=== PATIENT | male | born 1945 | race Caucasian/White ===

== ENCOUNTER → 2016-10-21 | Outpatient (CLI) | payer OTHER ==
[~2016-10-21] MED LIST: AMLO-110 PO; ASPEC81 PO; B-COCAP2 PO; GLYB5TAB8 PO; HMLI SC; HYDR12.56 PO; MCR25 PO; MULT-506 PO; REPA2TAB13 PO; VITA400C15 PO
[2016-10-21 11:02] LABS: MEAN CELL VOLUME 87.3 fL (80-100); MEAN CORPUSCULAR HGB CONC 35.5 g/dl (32-36); PLATELET COUNT 202 K/uL (130-400); RED BLOOD COUNT 4.81 M/uL (4.7-6.1); WHITE BLOOD COUNT 7.44 K/uL (4.8-10.8)
[2016-10-21 11:11] LABS: URINE APPEARANCE CLEAR (CLEAR); URINE BILIRUBIN NEG (NEG); URINE COLOR YELLOW; URINE EPITHELIAL CELL AUTO 0-5 /lpf (0-5); URINE NITRITE NEG (NEG); URINE PH 6.5 (4.5-7.5); URINE SPECIFIC GRAVITY 1.012 (1.000-1.030); UROBILINOGEN NEG (NEG)
[2016-10-21 11:19] LABS: MANUAL MICROSCOPIC REQUIRED? NO; REVIEW REQ? NO
[2016-10-21 11:33] LABS: ESTIMATED AVERAGE GLUCOSE 146 mg/dl; HA1C FLAG Normal (Normal)
[2016-10-21 12:59] LABS: URINE TOTAL PROTEIN 59.2 mg/dl (0-11.9)
[2016-10-21 13:03] LABS: BLOOD UREA NITROGEN 45 mg/dl (7-18); BUN/CREATININE RATIO 22.3 (10-20); CALCIUM 9.6 mg/dl (8.5-10.1); CARBON DIOXIDE 24 mmol/L (21-32); CHLORIDE 106 mmol/L (98-107); CHOLESTEROL 204 mg/dl (0-200); GLUCOSE 153 mg/dl (70-99); SODIUM 140 mmol/L (136-145)
[2016-10-21 13:14] LABS: HDL CHOLESTEROL 41 mg/dl; LDL CHOLESTEROL CALCULATED 114 mg/dl; PHOSPHORUS 3.1 mg/dl (2.5-4.9); TRIGLYCERIDES 246 mg/dl (0-150); VERY LOW DENSITY LIPOPROT CALC 49 mg/dl
== END | disposition home or self-care (01) ==
LOC: C.LAB1850 10:09
PROVIDERS: ATTEND Internal Medicine Nephrology
DX: E11.8 Type 2 diabetes mellitus with unspecified complications (principal); E78.5 Hyperlipidemia, unspecified; I12.9 Hypertensive chronic kidney disease with stage 1 through stage 4 chronic kidney disease, or unspecified chronic kidney disease; N18.3 Chronic kidney disease, stage 3 (moderate); R80.9 Proteinuria, unspecified; E55.9 Vitamin D deficiency, unspecified

== ENCOUNTER → 2016-12-13 | Outpatient (CLI) | payer OTHER ==
[2016-12-13 13:17] LABS: BLOOD UREA NITROGEN 36 mg/dl (7-18); CALCIUM 9.1 mg/dl (8.5-10.1); CARBON DIOXIDE 24 mmol/L (21-32); CHLORIDE 103 mmol/L (98-107); GLUCOSE 123 mg/dl (70-99); POTASSIUM 4.6 mmol/L (3.5-5.1); SODIUM 138 mmol/L (136-145)
[2016-12-13 13:20] LABS: ALB/GLOB RATIO 0.9 (0.9-2); ALKALINE PHOSPHATASE 65 U/L (45-117); ALT/SGPT 42 U/L (12-78); AST/SGOT 27 U/L (15-37); CHOLESTEROL 196 mg/dl (0-200); CHOLESTEROL/HDL RATIO 3.8; HDL CHOLESTEROL 52 mg/dl; LDL CHOLESTEROL CALCULATED 123 mg/dl; TRIGLYCERIDES 107 mg/dl (0-150); VERY LOW DENSITY LIPOPROT CALC 21 mg/dl
[2016-12-13 13:37] LABS: ESTIMATED AVERAGE GLUCOSE 154 mg/dl; HA1C FLAG Normal (Normal)
== END | disposition home or self-care (01) ==
LOC: C.LABBFT 08:49
PROVIDERS: ATTEND Internal Medicine Nephrology
DX: I10 Essential (primary) hypertension (principal); N18.3 Chronic kidney disease, stage 3 (moderate); N20.0 Calculus of kidney; R80.9 Proteinuria, unspecified; E55.9 Vitamin D deficiency, unspecified; E11.8 Type 2 diabetes mellitus with unspecified complications

== ENCOUNTER → 2017-06-22 | Outpatient (CLI) | payer OTHER ==
[2017-06-22 15:32] LABS: HEMATOCRIT 41.5 % (42-52); MEAN CELL VOLUME 89.2 fL (80-100); MEAN CORPUSCULAR HEMOGLOBIN 30.5 pg (25-34); MEAN CORPUSCULAR HGB CONC 34.2 g/dl (32-36); MEAN PLATELET VOLUME 11.1 fL (7.4-10.4); PLATELET COUNT 227 K/uL (130-400); RED BLOOD COUNT 4.65 M/uL (4.7-6.1); WHITE BLOOD COUNT 7.96 K/uL (4.8-10.8)
[2017-06-22 15:48] LABS: ALT/SGPT 45 U/L (12-78); BLOOD UREA NITROGEN 43 mg/dl (7-18); BUN/CREATININE RATIO 20.5 (10-20); CALCIUM 9.6 mg/dl (8.5-10.1); CARBON DIOXIDE 29 mmol/L (21-32); CHLORIDE 104 mmol/L (98-107); GLUCOSE 184 mg/dl (70-99); SODIUM 138 mmol/L (136-145)
[2017-06-22 15:51] LABS: ALB/GLOB RATIO 0.9 (0.9-2); ALKALINE PHOSPHATASE 72 U/L (45-117); AST/SGOT 40 U/L (15-37)
[2017-06-22 15:58] LABS: URINE APPEARANCE CLEAR (CLEAR); URINE BILIRUBIN NEG (NEG); URINE COLOR YELLOW; URINE EPITHELIAL CELL AUTO 0-5 /lpf (0-5); URINE NITRITE NEG (NEG); URINE PH 6.5 (4.5-7.5); URINE SPECIFIC GRAVITY 1.014 (1.000-1.030); UROBILINOGEN NEG (NEG)
[2017-06-22 16:05] LABS: URINE PROTIEN/CREAT RATIO 0.9 (0-0.2); URINE TOTAL PROTEIN 56.2 mg/dl (0-11.9)
[2017-06-22 16:09] LABS: MANUAL MICROSCOPIC REQUIRED? NO; REVIEW REQ? NO
[2017-06-23 06:04] LABS: ESTIMATED AVERAGE GLUCOSE 160 mg/dl; HA1C FLAG Normal (Normal)
== END | disposition home or self-care (01) ==
LOC: C.LAB1850 14:22
PROVIDERS: ATTEND Internal Medicine Nephrology
DX: E11.29 Type 2 diabetes mellitus with other diabetic kidney complication (principal); I12.9 Hypertensive chronic kidney disease with stage 1 through stage 4 chronic kidney disease, or unspecified chronic kidney disease; N18.3 Chronic kidney disease, stage 3 (moderate); N20.0 Calculus of kidney; E55.9 Vitamin D deficiency, unspecified; E78.5 Hyperlipidemia, unspecified

== ENCOUNTER → 2017-12-23 | Outpatient (CLI) | payer OTHER ==
[~2017-12-23] MED LIST changes: +REPA2TAB12 PO; -REPA2TAB13 PO
[2017-12-23 09:40] LABS: HEMOGLOBIN 13.8 g/dL (14.0-18.0); MEAN CELL VOLUME 88.7 fL (80-100); MEAN CORPUSCULAR HEMOGLOBIN 30.6 pg (25-34); MEAN CORPUSCULAR HGB CONC 34.5 g/dl (32-36); MEAN PLATELET VOLUME 10.8 fL (7.4-10.4); PLATELET COUNT 224 K/uL (130-400); RED CELL DISTRIBUTION WIDTH CV 13.4 % (11.5-14.5); RED CELL DISTRIBUTION WIDTH SD 43.5 fL (36.4-46.3); WHITE BLOOD COUNT 6.01 K/uL (4.8-10.8)
[2017-12-23 10:04] LABS: ALBUMIN 3.6 gm/dl (3.4-5.0); ALT/SGPT 37 U/L (12-78); BLOOD UREA NITROGEN 35 mg/dl (7-18); CALCIUM 9.3 mg/dl (8.5-10.1); CARBON DIOXIDE 26 mmol/L (21-32); CHOLESTEROL 184 mg/dl (0-200); CREATININE 2.06 mg/dl (0.60-1.40); GLUCOSE 102 mg/dl (70-99); SODIUM 139 mmol/L (136-145)
[2017-12-23 10:09] LABS: ALKALINE PHOSPHATASE 61 U/L (45-117); AST/SGOT 34 U/L (15-37); LDL CHOLESTEROL CALCULATED 122 mg/dl; TOTAL PROTEIN 7.7 gm/dl (6.4-8.2)
[2017-12-23 10:20] LABS: HEMOGLOBIN A1C 6.9 % (4.5-5.6)
== END | disposition home or self-care (01) ==
LOC: C.LAB1850 08:04
PROVIDERS: ATTEND Internal Medicine Nephrology
DX: I12.9 Hypertensive chronic kidney disease with stage 1 through stage 4 chronic kidney disease, or unspecified chronic kidney disease (principal); N18.3 Chronic kidney disease, stage 3 (moderate); N20.0 Calculus of kidney; R80.9 Proteinuria, unspecified; E78.5 Hyperlipidemia, unspecified; E55.9 Vitamin D deficiency, unspecified; E11.29 Type 2 diabetes mellitus with other diabetic kidney complication

== ENCOUNTER 2019-02-12 09:38 | Observation (INO) ==
[2019-02-12] MEDS ORDERED: SODIUM CHLORIDE 0.9% 1000ML 1,000 ML IV SCH (10:15)
--- NOTE | 2019-02-12 10:15 | Emergency Department Note ---
ED Provider Note CHIEF COMPLAINT: Weakness, fever/chills HISTORY OF PRESENTING ILLNESS: This is a 74-year-old male who presents to the emergency department by private vehicle with his with concern for generalized weakness/fatigue and fever/chills. Patient started feeling poorly about 4 days ago, states "I just do not have any energy and I have been sleeping a lot." He began to have fevers yesterday ranging from 100-103. He last had 1 g of Tylenol at 6 AM today. He has noticed that he has been having some increased urinary frequency and urgency, but denies any dysuria, cloudy or foul- smelling urine, or penile discharge. He has not had any associated headaches, neck pain or stiffness, vision changes, chest pain, shortness of breath, back pain, abdominal pain, vomiting or diarrhea. He did notice a rash on his left thigh about a week ago, states that he had 4 small dots on the front of the thigh and another spot on his left hip, he states that this is been improving, but he started to have a new spot on his inner thigh a day or 2 ago. He has not noticed a rash anywhere else on the body. He reports that he is up-to-date on immunizations. REVIEW OF SYSTEMS: A complete 10 point review of systems was reviewed with the patient with pertinent positives and negatives as per history of present illness. All else were negative. PAST MEDICAL HISTORY: Hypertension, insulin-dependent diabetes SOCIAL HISTORY: Lives at home with his spouse, he is a former smoker ALLERGIES: No known allergy PHYSICAL EXAM: CONSTITUTIONAL: Pleasant and cooperative. Nontoxic-appearing and in no acute distress. Mildly dehydrated, but otherwise well appearing and well nourished. HEENT: Normocephalic, atraumatic. PERRL, EOMI. TMs normal bilaterally. Pharynx normal. Tacky mucous membranes. NECK: Supple, full active range of motion without discomfort. No cervical adenopathy. RESPIRATORY: Clear to auscultation bilaterally with no wheezing, crackles, rhonchi or stridor. Equal expansion bilaterally. CARDIOVASCULAR: Regular rate and rhythm with no murmurs, rubs or gallops. Normal peripheral perfusion. No edema. GASTROINTESTINAL: Soft, nontender, nondistended. No palpable masses or HSM. Bowel sounds present in all quadrants. No CVA tenderness bilaterally. MUSCULOSKELETAL: Full range of motion of all joints without discomfort. INTEGUMENTARY: There is a scabbed over rash on the anterior left thigh, multiple maculopapular lesions in a cluster, nontender to palpation, purplish red in color, does not kandy, no drainage noted. There is a single erythematous fluid-filled lesion on the left inner thigh that is slightly tender to palpation. No purulent drainage noted. NEUROLOGIC: Alert and oriented X 4 with normal affect. Normal strength and sensation in all 4 extremities. Normal speech. ED COURSE AND MEDICAL DECISION MAKING: CC: Patient presenting with complaint of generalized weakness, fevers DIFFERENTIAL DIAGNOSIS: Includes, but not limited to viral syndrome, UTI, pyelonephritis, pneumonia, MRSA, cellulitis, ACS, sepsis/bacteremia, dehydration, electrolyte abnormality, among others. INTERPRETATION OF LABS: Leukopenia, no anemia, mild thrombocytopenia, mild hypokalemia, no other significant electrolyte abnormalities, elevated BUN/creatinine which appears to be consistent with baseline, normal liver enzymes. Negative troponin. Lactic acid within normal limits. UA appears to be negative for infection. Blood culture x2 pending. IMAGING: XR chest 1V portable CLINICAL HISTORY: fever COMPARISON STUDY: 07/25/2014 FINDINGS: The cardiac and mediastinal contours are normal. There is no evidence of focal pulmonary consolidation. There is no evidence of failure. No pleural effusions are visualized.[ IMPRESSION: No active disease in the chest. EKG: Shows sinus bradycardia with first-degree AV block with a rate of 58 bpm, left axis deviation, right bundle branch block, no acute ST or T wave changes, no ectopy, no significant change when compared to previous EKG from 07/15/2014 by my interpretation. MEDICATION RECONCILIATION: I attest that I have personally reviewed the patient's current medication list. INITIAL VITAL SIGNS REVIEW: I reviewed the patient's initial vital signs and interpret them as follows: T: Afebrile; BP: Normotensive; HR: Bradycardic; RR: Within normal limits; Pulse Ox: Within normal limits on room air. Blood pressure screening: The patient was found to have normal blood pressure on screening and does not require follow-up for repeat blood pressure check. MDM SUMMARY: Patient was evaluated at bedside, history and physical exam performed. Patient is alert and oriented, in no acute distress, resting calmly in stretcher. He is afebrile and nontoxic-appearing on initial exam. He does appear to be mildly dehydrated clinically. Neurologic exam is intact with no focal deficits. Lungs are clear. Abdomen is nontender. There is a scabbed over healing rash noted to the left anterior thigh, as well as a solitary lesion on the left inner thigh appears to be a fluid-filled blister. Wound culture was sent. Orders were placed at bedside for labs, UA and urine culture, blood cultures x2, lactic acid, IV fluid bolus for hydration, EKG, chest x-ray to evaluate for f ever. Patient discussed with Dr. Jones, who also evaluated the patient and agrees with my assessment, plan, and disposition. I did order IV Rocephin for broad coverage empirically. Labs and imaging reviewed as above, labs notable for a leukopenia with mild thrombocytopenia. Chest x-ray is clear. EKG and troponin are negative. Given his report of fevers to 103 at home with a leukopenia and unclear source of infection, I did feel the patient should be admitted for further evaluation. I spoke with Dr. Anderson, [facility] Hospitalist, who agreed to evaluate the patient for admission. Patient reassessed multiple times throughout ED stay, he has remained hemodynamically stable. Patient and his were updated on all results and plan for admission, they verbalized understanding and were agreeable to this plan. Patient was stable at time of admission. The chart was completed utilizing [employer] Speech voice recognition software. Grammatical errors, random word insertions, pronoun errors, and incomplete sentences are an occasional consequence of this system due to software limitations, ambient noise, and hardware issues. Any formal questions or concerns about the content, text, or information contained within the body of this dictation should be directly addressed to the nurse practitioner for clarification. Impression & Plan Acute febrile illness, Weakness generalized Past Med/Surg History Social History Preferred Language: Cambodian Communication Ability: Effective Card Setter Required: No Beliefs That Will Affect Care: None marital status: Current Living Situation: Spouse current occupational status: retired Other Information That Helps Us Care for You: No Feels Safe at Home: Yes Safety Concerns: Feels Safe At This Time Smoking Status: Former smoker Tobacco Type: cigarettes Do You Dip or Chew Tobacco: No Smoking End Date: 1965 Second Hand Exposure: No Tobacco Cessation Education Requested by Patient: No Hx Alcohol Use: No Hx Substance Use: No Results & Data Vital Signs Vital Signs - 24 hr 02/12/19 09:40 02/12/19 10:40 02/12/19 10:47 Temperature 36.4 C L Temperature Source Oral Sepsis Recent Fever Within 48 Hours Yes Sepsis New/Unexplained Change in Mental Status No Sepsis Action Taken by Nursing No Action Required Pulse Rate 59 L Pulse Rate [Left Finger] 55 L Pulse Rate from SpO2 Sensor Respiratory Rate 20 18 Blood Pressure 126/67 Blood Pressure [Left Arm] 115/58 L Blood Pressure Mean 86 Blood Pressure Mean [Left Arm] 77 Pulse Oximetry 95 95 95 Oxygen Delivery Method Room Air Room Air Room Air 02/12/19 11:00 02/12/19 11:01 02/12/19 11:02 Temperature Temperature Source Sepsis Recent Fever Within 48 Hours Sepsis New/Unexplained Change in Mental Status Sepsis Action Taken by Nursing Pulse Rate 54 L 54 L 53 L Pulse Rate [Left Finger] Pulse Rate from SpO2 Sensor 54 L 54 L 54 L Respiratory Rate 19 18 17 Blood Pressure 128/53 L Blood Pressure [Left Arm] Blood Pressure Mean 78 Blood Pressure Mean [Left Arm] Pulse Oximetry 95 95 96 Oxygen Delivery Method 02/12/19 11:30 02/12/19 12:00 02/12/19 12:01 Temperature Temperature Source Sepsis Recent Fever Within 48 Hours Sepsis New/Unexplained Change in Mental Status Sepsis Action Taken by Nursing Pulse Rate 52 L 55 L 53 L Pulse Rate [Left Finger] Pulse Rate from SpO2 Sensor 52 L 56 L 55 L Respiratory Rate 19 15 14 Blood Pressure 126/59 L Blood Pressure [Left Arm] Blood Pressure Mean 81 Blood Pressure Mean [Left Arm] Pulse Oximetry 93 97 94 Oxygen Delivery Method 02/12/19 12:30 02/12/19 13:00 02/12/19 13:01 Temperature Temperature Source Sepsis Recent Fever Within 48 Hours Sepsis New/Unexplained Change in Mental Status Sepsis Action Taken by Nursing Pulse Rate 56 L 56 L 55 L Pulse Rate [Left Finger] Pulse Rate from SpO2 Sensor 56 L 56 L 55 L Respiratory Rate 21 26 H 15 Blood Pressure 117/60 Blood Pressure [Left Arm] Blood Pressure Mean 79 Blood Pressure Mean [Left Arm] Pulse Oximetry 95 95 95 Oxygen Delivery Method 02/12/19 13:30 Temperature Temperature Source Sepsis Recent Fever Within 48 Hours Sepsis New/Unexplained Change in Mental Status Sepsis Action Taken by Nursing Pulse Rate 56 L Pulse Rate [Left Finger] Pulse Rate from SpO2 Sensor 56 L Respiratory Rate 19 Blood Pressure Blood Pressure [Left Arm] Blood Pressure Mean Blood Pressure Mean [Left Arm] Pulse Oximetry 94 Oxygen Delivery Method Laboratory Data Result diagrams: 02/12/19 10:22 02/12/19 10:22 Lab Results 02/12/19 02/12/19 02/12/19 Range/Units 10:22 10:22 10:22 WBC 3.67 L (4.8-10.8) K/uL RBC 4.61 L (4.7-6.1) M/uL Hgb 14.1 (14.0-18.0) g/dL Hct 39.7 L (42-52) % MCV 86.1 (80-100) fL MCH 30.6 (25-34) pg MCHC 35.5 (32-36) g/dL RDW Std Deviation 42.2 (36.4-46.3) fL RDW Coeff of Aung 13.3 (11.5-14.5) % Plt Count 123 L (130-400) K/uL MPV 10.9 H (7.4-10.4) fL Immature Gran % (Auto) 0.3 % Neut % (Auto) 45.3 % Lymph % (Auto) 37.6 % [place] % (Auto) 14.4 % Eos % (Auto) 0.8 % Baso % (Auto) 1.6 % Immature Gran # (Auto) 0.01 (0.00-0.02) K/uL Neut # (Auto) 1.66 (1.4-6.5) K/uL Lymph # (Auto) 1.38 (1.2-3.4) K/uL [place] # (Auto) 0.53 (0.11-0.59) K/uL Eos # (Auto) 0.03 (0-0.5) K/uL Baso # (Auto) 0.06 (0-0.2) K/uL PT (9.0-12.0) Seconds INR (0.9-1.1) APTT (21.0-31.0) Seconds PTT Ratio Sodium 136 (136-145) mmol/L Potassium 3.3 L (3.5-5.1) mmol/L Chloride 102 (98-107) mmol/L Carbon Dioxide 24 (21-32) mmol/L Anion Gap 10.0 (3-11) BUN 42 H (7-18) mg/dl Creatinine 2.37 H (0.6-1.4) mg/dl Est Cr Clr Drug Dosing 27.4 ml/min Est GFR ( Amer) 29.7 Est GFR (Non-Af Amer) 25.6 BUN/Creatinine Ratio 17.8 (10-20) Glucose 160 H (70-99) mg/dl Lactate 1.5 (0.4-2.0) mmol/L Calcium 8.4 L (8.5-10.1) mg/dl Total Bilirubin 0.4 (0.2-1) mg/dl AST 47 H (15-37) U/L ALT 43 (12-78) U/L Alkaline Phosphatase 63 (45-117) U/L Troponin I < 0.015 (0-0.045) ng/ml Total Protein 7.4 (6.4-8.2) gm/dl Albumin 3.1 L (3.4-5.0) gm/dl Globulin 4.3 H (2.5-4.0) gm/dl Albumin/Globulin Ratio 0.7 L (0.9-2) Urine Color Urine Appearance (Clear) Urine pH (4.5-7.5) Ur Specific [place] (1.000-1.030) Urine Protein (Negative) Urine Glucose (UA) (Negative) Urine Ketones (Negative) Urine Blood (Negative) Urine Nitrite (Negative) Urine Bilirubin (Negative) Urine Urobilinogen (Negative) Ur Leukocyte Esterase (Negative) Urine WBC (Auto) (0-5) /hpf Urine RBC (Auto) (0-4) /hpf U Hyaline Cast (Auto) (0-5) /lpf U Epithel Cells (Auto) (0-5) /lpf Urine Bacteria (Auto) (Negative) 02/12/19 02/12/19 Range/Units 10:22 10:23 WBC (4.8-10.8) K/uL RBC (4.7-6.1) M/uL Hgb (14.0-18.0) g/dL Hct (42-52) % MCV (80-100) fL MCH (25-34) pg MCHC (32-36) g/dL RDW Std Deviation (36.4-46.3) fL RDW Coeff of Aung (11.5-14.5) % Plt Count (130-400) K/uL MPV (7.4-10.4) fL Immature Gran % (Auto) % Neut % (Auto) % Lymph % (Auto) % [place] % (Auto) % Eos % (Auto) % Baso % (Auto) % Immature Gran # (Auto) (0.00-0.02) K/uL Neut # (Auto) (1.4-6.5) K/uL Lymph # (Auto) (1.2-3.4) K/uL [place] # (Auto) (0.11-0.59) K/uL Eos # (Auto) (0-0.5) K/uL Baso # (Auto) (0-0.2) K/uL PT 12.3 H (9.0-12.0) Seconds INR 1.2 H (0.9-1.1) APTT 29.2 (21.0-31.0) Seconds PTT Ratio 1.1 Sodium (136-145) mmol/L Potassium (3.5-5.1) mmol/L Chloride (98-107) mmol/L Carbon Dioxide (21-32) mmol/L Anion Gap (3-11) BUN (7-18) mg/dl Creatinine (0.6-1.4) mg/dl Est Cr Clr Drug Dosing ml/min Est GFR ( Amer) Est GFR (Non-Af Amer) BUN/Creatinine Ratio (10-20) Glucose (70-99) mg/dl Lactate (0.4-2.0) mmol/L Calcium (8.5-10.1) mg/dl Total Bilirubin (0.2-1) mg/dl AST (15-37) U/L ALT (12-78) U/L Alkaline Phosphatase (45-117) U/L Troponin I (0-0.045) ng/ml Total Protein (6.4-8.2) gm/dl Albumin (3.4-5.0) gm/dl Globulin (2.5-4.0) gm/dl Albumin/Globulin Ratio (0.9-2) Urine Color Yellow Urine Appearance Clear (Clear) Urine pH 6.0 (4.5-7.5) Ur Specific [place] 1.013 (1.000-1.030) Urine Protein 2+ H (Negative) Urine Glucose (UA) Negative (Negative) Urine Ketones Negative (Negative) Urine Blood 1+ H (Negative) Urine Nitrite Negative (Negative) Urine Bilirubin Negative (Negative) Urine Urobilinogen Negative (Negative) Ur Leukocyte Esterase Negative (Negative) Urine WBC (Auto) 1-5 (0-5) /hpf Urine RBC (Auto) 5-10 H (0-4) /hpf U Hyaline Cast (Auto) 1-5 (0-5) /lpf U Epithel Cells (Auto) 5-10 H (0-5) /lpf Urine Bacteria (Auto) Negative (Negative) Administered Medications Discontinued Medications Sodium Chloride (Nss 1000ml) 1,000 mls @ 999 mls/hr IV .Q1H1M THIAGO Stop: 02/12/19 11:15 Last Infusion: 02/12/19 11:20 Dose: 0 mls/hr Documented by: [id number] Admin: 02/12/19 10:33 Dose: 999 mls/hr Documented by: [id number] Ceftriaxone Sodium (Rocephin) 1,000 mg in 50 mls @ 100 mls/hr IV NOW STA Stop: 02/12/19 13:04 Last Infusion: 02/12/19 13:24 Dose: 0 mls/hr Documented by: [id number] Admin: 02/12/19 12:47 Dose: 100 mls/hr Documented by: [id number] Discharge Plan Visit Data Chief Complaint: Fever Stated Complaint: FEVER, DEHYDRATED, HEADACHE, STOMACH ISSUES ED Provider: González Jones ED Midlevel Provider: Stella Mccoy Discharge Problem: Acute febrile illness, Weakness generalized Patient Disposition: Admitted As Inpatient Condition: Good Forms Stand Alone Forms: [facility] Prescriptions Prescriptions: No Action multivitamin Tablet 1 tab PO QAM RF: 0 losartan 50 mg Tablet 50 mg PO QAM RF: 0 aspirin [Aspir-81] 81 mg Tablet,Delayed Release (Dr/Ec) 81 mg PO HS RF: 0 gemfibrozil 600 mg Tablet 600 mg PO QAM RF: 0 hydrochlorothiazide 12.5 mg Capsule 12.5 mg PO QAM RF: 0 vitamin E 400 unit Capsule 400 unit PO QAM RF: 0 vitamin B complex Capsule 1 cap PO QAM RF: 0 Novolog PenFill U-100 Insulin 100 unit/mL Cartridge 1 sliding scale dose SUBCUT USEASDIRECTD RF: 0 cholecalciferol (vitamin D3) [Vitamin D3] 2,000 unit Capsule 2,000 unit PO QAM RF: 0 Tresiba FlexTouch U-100 100 unit/mL (3 mL) Insulin Pen 14 unit SUBCUT HS RF: 0 sennosides [Senokot] 8.6 mg Tablet 8.6 mg PO BID RF: 0 acetaminophen [Tylenol Extra Strength] 500 mg Tablet 500 mg PO Q6H PRN (Reason: Pain) RF: 0 Referrals Referrals: Mariel De Leon MD [Primary Care Provider] -
--- NOTE | 2019-02-12 10:25 | XRay Report ---
XR chest 1V portable CLINICAL HISTORY: fever COMPARISON STUDY: 07/25/2014 FINDINGS: The cardiac and mediastinal contours are normal. There is no evidence of focal pulmonary co nsolidation. There is no evidence of failure. No pleural effusions are visualized.[ IMPRESSION: No active disease in the chest. Electronically signed by: Cole Jones M.D. 02/12/2019 10:23 AM
[2019-02-12 10:46] LABS: Basophils # (auto) 0.06 K/uL (0-0.2); Basophils % (auto) 1.6 %; Eosinophils # (auto) 0.03 K/uL (0-0.5); Eosinophils % (auto) 0.8 %; Hematocrit (blood only) 39.7 % (42-52); Hemoglobin 14.1 g/dL (14.0-18.0); Immature Granulocytes # (auto) 0.01 K/uL (0.00-0.02); Immature Granulocytes % (auto) 0.3 %; Lymphocytes # (auto) 1.38 K/uL (1.2-3.4); Lymphocytes % (auto) 37.6 %; Mean Corpuscular Hgb Conc 35.5 g/dL (32-36); Mean Corpuscular Volume 86.1 fL (80-100); Mean Platelet Volume 10.9 fL (7.4-10.4); Monocytes # (auto) 0.53 K/uL (0.11-0.59); Monocytes % (auto) 14.4 %; Neutrophils # (auto) 1.66 K/uL (1.4-6.5); Neutrophils % (auto) 45.3 %; Platelet Count 123 K/uL (130-400); RDW Coefficient of Variation 13.3 % (11.5-14.5); RDW Standard Deviation 42.2 fL (36.4-46.3); Red Blood Count 4.61 M/uL (4.7-6.1); White Blood Count 3.67 K/uL (4.8-10.8)
[2019-02-12 10:53] LABS: Appearance Urine Clear (Clear); Bacteria Urine Automated Negative (Negative); Bilirubin Urine Negative (Negative); Blood Urine 1+ (Negative); Color Urine Yellow; Glucose Urine UA Negative (Negative); Ketones Urine Negative (Negative); Leukocyte Esterase Urine Negative (Negative); Nitrite Urine Negative (Negative); Protein Urine 2+ (Negative); Specific Gravity Urine 1.013 (1.000-1.030); Urobilinogen Urine Negative (Negative)
[2019-02-12 10:59] LABS: INR 1.2 (0.9-1.1); Partial Thromboplastin Ratio 1.1; Partial Thromboplastin Time 29.2 Seconds (21.0-31.0); Prothrombin Time 12.3 Seconds (9.0-12.0)
[2019-02-12 11:06] LABS: Alanine Aminotransferase 43 U/L (12-78); Albumin Level 3.1 gm/dl (3.4-5.0); Aspartate Aminotransferase 47 U/L (15-37); BUN Creatinine Ratio 17.8 (10-20); Blood Urea Nitrogen 42 mg/dl (7-18); Calcium 8.4 mg/dl (8.5-10.1); Carbon Dioxide 24 mmol/L (21-32); Chloride 102 mmol/L (98-107); Creatinine Clr Calc Pharmacy 27.4 ml/min; Est GFR (African American) 29.7; Est GFR (Non-African American) 25.6; Glucose 160 mg/dl (70-99); Potassium 3.3 mmol/L (3.5-5.1); Sodium 136 mmol/L (136-145)
[2019-02-12 11:11] LABS: Albumin Globulin Ratio 0.7 (0.9-2); Alkaline Phosphatase 63 U/L (45-117); Bilirubin,Total 0.4 mg/dl (0.2-1); Globulin 4.3 gm/dl (2.5-4.0); Total Protein 7.4 gm/dl (6.4-8.2); Troponin I < 0.015 ng/ml (0-0.045)
[2019-02-12] MEDS ORDERED: cefTRIAXone SODIUM 1,000 MG/50 ML BAG IV STA (12:35)
--- NOTE | 2019-02-12 13:33 | History & Physical Report ---
Date of Service February 12, 2019 Assessment & Plan (1) Rash: 74 y/o M Hx DM II, HTN, HLD, CKD III. Presents with weakness, excessive sleep, fevers and rigors x 3-4 days. Also noted a cluster of blisters on his L thigh with a burning -type pain. He had a small red spot on his L thigh near his buttocks, a cluster of blisters on his anterior thigh and another small blister lower down. The blisters were drained for a wound culture in the ER. After drainage the localized pain resolved. The 3 wounds could plausibly follow a dermatome and represent shingles, however, it is not clear if the upper lesion is related as it does not have the same morphology. What gives us pause is his systemic symptoms and a temp reported at 103. He does report being outdoors and was concerned that these were insect bites. Labs are unremarkable, a UA is negative and a CXR is clear. 1) Rash/blisters - shingles vs bacterial - possibly strep or staph. We will keep him overnight pending culture results. We may be able to obtain a varicella wound culture as well. We will check for lyme and anaplasmosis as he does report possible insect bites. The affected area has been delineated and he was provided with Ceftriaxone and Vanc pending culture results. 2) CKD II - creat is approximately at baseline. IVF provided overnight 3) HTN - cont Losartan, HCTZ held pending AM labs due to mild dehydration. 4) HLD - cont Gemfibrozil 5) DM II - placed on a SS Full code - Heparin prophylaxis Total time for this admit including review of labs, meds, imaging, records - discussion with pt and ER attending - 35 min Present on Admission?: Yes History of Present Illness Chief Complaint: weakness, fevers, thigh rash/blister Primary Care Provider: Mariel De Leon MD 74 y/o M Hx DM II, HTN, HLD, CKD III. Presents with weakness, excessive sleep, fevers and rigors x 3-4 days. Also noted a cluster of blisters on his L thigh with a burning -type pain. He had a small red spot on his L thigh near his buttocks, a cluster of blisters on his anterior thigh and another small blister lower down. The blisters were drained for a wound culture in the ER. After drainage the localized pain resolved. The 3 wounds could plausibly follow a dermatome and represent shingles, however, it is not clear if the upper lesion is related as it does not have the same morphology. What gives us pause is his systemic symptoms and a temp reported at 103. He does report being outdoors and was concerned that these were insect bites. Labs are unremarkable, a UA is negative and a CXR is clear. 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 Family: Could not remember cause of parents Allergies Allergy/AdvReac Type Severity Reaction Status Date / Time No Known Allergies Allergy Unknown Verified 02/12/19 11:18 Home Medications Home Medications Medication Instructions Recorded Confirmed Type aspirin [Aspir-81] 81 mg PO HS 02/07/19 02/12/19 History cholecalciferol (vitamin D3) 2,000 unit PO QA 02/07/19 02/12/19 History [Vitamin D3] gemfibrozil 600 mg PO QAM 02/07/19 02/12/19 History hydrochlorothiazide 12.5 mg PO QAM 02/07/19 02/12/19 History insulin aspart U-100 [Novolog 1 sliding scale dose SUBCUT 02/07/19 02/12/19 History PenFill U-100 Insulin] USEASDIRECTD insulin degludec [Tresiba 14 unit SUBCUT 02/07/19 02/12/19 History FlexTouch U-100] losartan 50 mg PO QA 02/07/19 02/12/19 History multivitamin 1 tab PO QAM 02/07/19 02/12/19 History sennosides [Senokot] 8.6 mg PO BID 02/07/19 02/12/19 History vitamin B complex 1 cap PO QAM 02/07/19 02/12/19 History vitamin E 400 unit PO QAM 02/07/19 02/12/19 History acetaminophen [Tylenol Extra 500 mg PO Q6H PRN 02/12/19 02/12/19 History Strength] Past Med/Surg History Social History Preferred Language: Romanian 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 Beliefs That Will Affect Care: None marital status: Current Living Situation: Spouse current occupational status: retired Other Information That Helps Us Care for You: No Feels Safe at Home: Yes Safety Concerns: Feels Safe At This Time Smoking Status: Former smoker Tobacco Type: cigarettes Do You Dip or Chew Tobacco: No Smoking End Date: 1965 Second Hand Exposure: No Tobacco Cessation Education Requested by Patient: No Hx Alcohol Use: No Hx Substance Use: No Review of Systems Review of Systems: Gen: Denies fevers, night sweats, rigors, fatigue, malaise, weight loss/gain ENT: Denies congestion, throat pain, hearing loss Eyes: Denies acute visual changes CV: Denies CP, palpitations Pulmonary: Denies SOB, cough, wheezing GI: Denies N/V, diarrhea, constipation Neuro: Denies acute or unilateral weakness, acute gait impairment, headache or acute visual changes Musculoskeletal: Denies joint pain, inflammation Endocrine: Denies polydipsia, polyuria Skin: Blisters as per HPI Physical Exam Physical Exam: General: AAO x 3, no distress ENT: No erythema or exudates, no thrush Eyes: DOTTIE, EOMI Head and neck: Normocephalic, atraumatic, No JVD, neck is supple. Chest/heart: Nontender, S1,2, RRR, no murmurs, no gallops Lungs: CTAB, no wheezing or crackles Abdomen: Nontender, nondistended, BS+ Neuro: AAO x 3, speech is clear, no unilateral weakness or loss of sensation, coordination intact Musculoskeletal: No joint inflammation, muscle tenderness, FROM Skin: Small red spot on his L thigh near his buttocks, a cluster of blisters on his anterior thigh and another small blister lower down Extremities: No clubbing, cyanosis, edema Results & Data Vital Signs (Past 12 Hours) Vital Signs Temp Pulse Pulse Resp BP BP Pulse Ox 02/12/19 12:30 56 L 21 95 02/12/19 12:01 53 L 14 126/59 L 94 02/12/19 12:00 55 L 15 97 02/12/19 11:30 52 L 19 93 02/12/19 11:02 53 L 17 96 02/12/19 11:01 54 L 18 128/53 L 95 02/12/19 11:00 54 L 19 95 02/12/19 10:47 55 L 18 115/58 L 95 02/12/19 10:40 95 02/12/19 09:40 97.5 F L 59 L 20 126/67 95
[2019-02-12] MEDS ORDERED: ONDANSETRON INJ 2 MG/ML 2 ML VIAL IV PRN (16:03)
[2019-02-12] MEDS ORDERED: MAGNESIUM HYDROXIDE SUSP 30 ML UDC PO PRN (16:03)
[2019-02-12] MEDS ORDERED: VANCOMYCIN CONSULT ACTIVE PRN (16:03)
[2019-02-12] MEDS ORDERED: ACETAMINOPHEN 325 MG TAB PO PRN (16:03)
[2019-02-12] MEDS ORDERED: POLYETHYLENE (MIRALAX) 17 GM PACK PO PRN (16:03)
[2019-02-12] MEDS ORDERED: ALUMINUM/MAGNESIUM SUSP 30 ML UDC PO PRN (16:03)
[2019-02-12] MEDS ORDERED: GLUCOSE 40% GEL 15 GM TUBE PO PRN (17:15)
[2019-02-12] MEDS ORDERED: DEXTROSE 50% 50 ML SYRINGE IV PRN (17:15)
[2019-02-12] MEDS ORDERED: GLUCOSE 10 TABS/TUBE PO PRN (17:15)
[2019-02-12] MEDS: INSULIN ASPART 100 UNITS/ML 3 ML PEN SC SCH ×2 (17:15→21:08)
[2019-02-12] MEDS ORDERED: GLUCAGON FOR INJ 1 MG VIAL IM PRN (17:15)
[2019-02-12] MEDS ORDERED: CARBOHYDRATES FOR HYPOGLYCEMIA PO PRN (17:15)
[2019-02-12] MEDS ORDERED: VANCOMYCIN HCL 2,000 MG in SODIUM CHLORIDE 0.9% 500 ML IV ONE (17:30)
[2019-02-12] MEDS ORDERED: NSS + 20MEQ KCL 20 MEQ/1,000 ML BAG IV SCH (17:30)
--- NOTE | 2019-02-12 19:28 | Pharmacy Report ---
Pharmacy Abx Initial Consult - Date of Service February 12, 2019 - Pharmacy Dosing Scope Date of Consult: 02/12/49 Consultation requested by: Dr. Anderson Pharmacy is consulted to initiate vancomycin IV dosing therapy, order appropriate labs and adjust drug dose/frequency. - Subjective The patient is a 74 year old M admitted on 02/12/19 13:28. - Objective Height: 5 ft 10 in Weight: 83.2 kg Vital Signs (Past 12hrs): Vital Signs Temp Pulse Pulse Resp BP BP Pulse Ox 02/12/19 13:30 56 L 19 94 02/12/19 13:01 55 L 15 117/60 95 02/12/19 13:00 56 L 26 H 95 02/12/19 12:30 56 L 21 95 02/12/19 12:01 53 L 14 126/59 L 94 02/12/19 12:00 55 L 15 97 02/12/19 11:30 52 L 19 93 02/12/19 11:02 53 L 17 96 02/12/19 11:01 54 L 18 128/53 L 95 02/12/19 11:00 54 L 19 95 02/12/19 10:47 55 L 18 115/58 L 95 02/12/19 10:40 95 02/12/19 09:40 36.4 C L 59 L 20 126/67 95 Lab Results (24hrs): Laboratory Tests (24 Hours) 02/12/19 02/12/19 10:22 10:22 WBC 3.67 L Neut # (Auto) 1.66 Creatinine 2.37 H Est Cr Clr Drug Dosing 27.4 Micro Results: 02/12/19 14:25 Urine Culture - Pending Urine,Clean Catch 02/12/19 10:05 Gram Stain - Final Thigh Wound Culture - Pending 02/12/19 10:22 Blood Culture - Pending Blood 02/12/19 10:22 Blood Culture - Pending Blood - Assessment & Plan Assessment 74 year old M admitted with rash/blisters, possible skin infection. Blister was drained - culture obtained. Lyme and anaplasmosis studies pending per patient reported possible insect bites. Plan Vancomycin IV * Estimated PK Parameters: Vd 58 L/kg, Willian 0.027 hr-1, t1/2 25.6 hr * Loading dose: 2000 mg (24 mg/kg) * Maintenance dose: 1000 mg IV (12 mg/kg) every 24 hours * a less than traditional dose has been utilized due to more aggressive dosing interval * Goal trough level for SSTI : ~15 mcg/mL * Trough level will be ordered if vancomycin is continued beyond 3 days If there is strong clinical suspicion for anaplasmosis, consider changing vancomycin to doxycycline for dual coverage of MRSA and anaplasmosis. Pharmacy will continue to follow and will adjust dose/frequency as necessary. Thank you.
[2019-02-12] MEDS ORDERED: ASPIRIN 81 MG ECTAB PO SCH (21:00)
[2019-02-12] MEDS: SENNA 8.6 MG TAB PO SCH (21:04)
[2019-02-12] MEDS: HEPARIN SOD 5,000 UNIT/0.5 ML VIAL SQ SCH (21:10)
[2019-02-13] MEDS: HEPARIN SOD 5,000 UNIT/0.5 ML VIAL SQ SCH ×2 (05:40→12:42)
[2019-02-13 08:14] LABS: Basophils # (auto) 0.14 K/uL (0-0.2); Basophils % (auto) 3.1 %; Eosinophils # (auto) 0.03 K/uL (0-0.5); Eosinophils % (auto) 0.7 %; Hematocrit (blood only) 37.2 % (42-52); Immature Granulocytes # (auto) 0.01 K/uL (0.00-0.02); Immature Granulocytes % (auto) 0.2 %; Lymphocytes # (auto) 2.21 K/uL (1.2-3.4); Lymphocytes % (auto) 49.2 %; Mean Corpuscular Hgb Conc 34.9 g/dL (32-36); Mean Corpuscular Volume 86.3 fL (80-100); Mean Platelet Volume 10.8 fL (7.4-10.4); Monocytes # (auto) 0.78 K/uL (0.11-0.59); Monocytes % (auto) 17.4 %; Neutrophils # (auto) 1.32 K/uL (1.4-6.5); Neutrophils % (auto) 29.4 %; Platelet Count 126 K/uL (130-400); RDW Coefficient of Variation 13.4 % (11.5-14.5); RDW Standard Deviation 42.9 fL (36.4-46.3); Red Blood Count 4.31 M/uL (4.7-6.1); White Blood Count 4.49 K/uL (4.8-10.8)
[2019-02-13] MEDS: SENNA 8.6 MG TAB PO SCH (08:27)
[2019-02-13 08:47] LABS: Calcium 8.5 mg/dl (8.5-10.1); Creatinine Clr Calc Pharmacy 31.5 ml/min; Est GFR (African American) 35.2; Est GFR (Non-African American) 30.4; Potassium 3.8 mmol/L (3.5-5.1)
[2019-02-13] MEDS ORDERED: GEMFIBROZIL 600 MG TAB PO SCH (09:00)
[2019-02-13] MEDS ORDERED: CHOLECALCIFEROL 1,000 UNITS TAB PO SCH (09:00)
[2019-02-13] MEDS ORDERED: LOSARTAN POTASSIUM 50 MG TAB PO SCH (09:00)
[2019-02-13] MEDS: INSULIN ASPART 100 UNITS/ML 3 ML PEN SC SCH ×2 (09:26→12:40)
[2019-02-13] MEDS ORDERED: cefTRIAXone SODIUM 2,000 MG in DEXTROSE 5% 50 ML IV SCH (12:00)
[2019-02-13] MEDS ORDERED: VANCOMYCIN HCL 1,000 MG in SODIUM CHLORIDE 0.9% 250 ML IV SCH (17:00)
--- NOTE | 2019-02-13 22:21 | Discharge Summary ---
Date of Service February 13, 2019 Admission HPI Per Admitting Provider 74 y/o M Hx DM II, HTN, HLD, CKD III. Presents with weakness, excessive sleep, fevers and rigors x 3-4 days. Also noted a cluster of blisters on his L thigh with a burning -type pain. He had a small red spot on his L thigh near his buttocks, a cluster of blisters on his anterior thigh and another small blister lower down. The blisters were drained for a wound culture in the ER. After drainage the localized pain resolved. The 3 wounds could plausibly follow a dermatome and represent shingles, however, it is not clear if the upper lesion is related as it does not have the same morphology. What gives us pause is his systemic symptoms and a temp reported at 103. He does report being outdoors and was concerned that these were insect bites. Labs are unremarkable, a UA is negative and a CXR is clear. 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 Chest/heart: Nontender, S1,2, RRR, no murmurs, no gallops Lungs: CTAB, no wheezing or crackles Abdomen: Nontender, nondistended, BS+ Neuro: AAO x 3, speech is clear, no unilateral weakness or loss of sensation, coordination intact Musculoskeletal: No joint inflammation, muscle tenderness, FROM Skin: Small red spot on his L thigh near his buttocks, a cluster of blisters on his anterior thigh and another small blister lower down Extremities: No clubbing, cyanosis, edema Principal Diagnosis Folliculitis Discharge Exam Constitutional well developed, well nourished, cooperative and comfortable; no acute distress Eyes PERRL, conjunctivae normal, anicteric sclerae ENMT external ear and nose normal, oropharynx normal Neck normal visual inspection Respiratory normal respiratory effort, lungs clear to auscultation Cardiovascular RRR, no murmur, no edema Gastrointestinal (Abdomen) normal bowel sounds, soft, nontender, no hepatosplenomegaly Skin + lesion (Cluster of multiple blisters on left anteromedial thigh) Red dry, non tender, one isolated lesion around posterior side of leg Discharge Data Allergies Allergy/AdvReac Type Severity Reaction Status Date / Time No Known Allergies Allergy Unknown Verified 02/12/19 11:18 Consultations 02/12/19 12:35 ED Decision to Admit Stat Hospital Course (1) Acute febrile illness: 74 year old male with 3-4 day history of subjective fever, chills and weakness with new rash on leg Rash in right thigh Likely folliculitis, multiple blisters around hair follicles, blisters were lysed and cultured in ER started on vanc and ceftriaxone. Cultures growing Staphylococcus species sensitivities pending at time of discharge. Patient afebrile throughout hospital stay and no more symptoms of chills. [place] completely back to normal state of health rash did not spread and may even have regressed slightly and he was discharged on bactrim low dose BID for 7 days for staphylococcal skin infection. Reported Fever No fever while in the hospital. Subjective outpatient fever with chills, possibly secondary to folliculitis or very possibly due to concurrent viral infection of some sort. No evidence for spreading cellulitic infection. Patient advised to return to medical care for any new or worsening febrile illness. (2) Rash: Total Time Total Time Spent Total Time Spent (In Minutes): 25 Discharge Plan Discharge Items Patient Disposition: Home - Self-Care Reason For Visit: CELLULITIS Discharge Diagnosis: Folliculitis Condition: Good Discharge Goals: Therapeutic intervention Activity: Resume your previous activity Non-emergency contact: Primary Care Provider Call non-emergency contact if: you have any medication questions, your pain is not controlled and your temperature is above 100.5 Follow-up/Referrals: Mariel De Leon MD [Primary Care Provider] - Diet: Regular Addtl Provider Instructions: Mr. Navas it was our pleasure to treat you for your folliculitis skin rash. We believe this may have been caused by a bacterial infection affecting several of the hair follicles of your skin. After observing you today, you appear to be doing much better and we feel it is safe to discharge you home. We will be sending you home with Bactrim an antibiotic that treats the type of bacteria grown from your culture. It is a medication you can take twice daily for five days. If you notice a red rash start to spread out from the area, if you notice fevers and chills return while on the antibiotic, or you notice anything else troubling to you, please return to medical care. Prescriptions: New sulfamethoxazole-trimethoprim [Bactrim] 400-80 mg tablet 1 tab PO BID Qty: 10 RF: 0 Continued multivitamin Tablet 1 tab PO QAM RF: 0 losartan 50 mg Tablet 50 mg PO QAM RF: 0 aspirin [Aspir-81] 81 mg Tablet,Delayed Release (Dr/Ec) 81 mg PO HS RF: 0 gemfibrozil 600 mg Tablet 600 mg PO QAM RF: 0 hydrochlorothiazide 12.5 mg Capsule 12.5 mg PO QAM RF: 0 vitamin E 400 unit Capsule 400 unit PO QAM RF: 0 vitamin B complex Capsule 1 cap PO QAM RF: 0 Novolog PenFill U-100 Insulin 100 unit/mL Cartridge 1 sliding scale dose SUBCUT USEASDIRECTD RF: 0 cholecalciferol (vitamin D3) [Vitamin D3] 2,000 unit Capsule 2,000 unit PO QAM RF: 0 Tresiba FlexTouch U-100 100 unit/mL (3 mL) Insulin Pen 14 unit SUBCUT HS RF: 0 sennosides [Senokot] 8.6 mg Tablet 8.6 mg PO BID RF: 0 acetaminophen [Tylenol Extra Strength] 500 mg Tablet 500 mg PO Q6H PRN (Reason: Pain) RF: 0 Stand-Alone Forms: [facility] Discharge Orders: Discharge Order (Routine); Ordered 02/13/19 Ordered By: Vijay Roy Admission Data Admit Date/Time: 02/12/19 13:28 Attending Provider: Angela Christianson Admit Provider: Joseph Anderson Primary Care Provider: Mariel De Leon Other Providers: Joseph Anderson Service: Medical Other Interventions: Discharge Summary Assessment (RN) Last Done: 02/13/19 15:48 DC Date/Time DO NOT enter until pt leaves facility: 02/13/19 16:14 Supervising Physician Co-Signing Physician Notes Resident Physician Supervision Note: I independently interviewed and examined the patient and verified the shanks history and physical, reviewed labs and image studies, discussed the case with the resident Dr. Roy and agree with the findings and care plan. Resident Activity Tracking Resident Involvement: Resident Care Provided Care Provided: Adult [facility]
[2019-02-15 16:25] LABS: Anaplasma phagocytophila IgM <1:20 (<1:20)
[2019-02-16 00:18] LABS: 18KDIGG Band NONREACTIVE (NONREACTIVE); 23KDIGG Band NONREACTIVE (NONREACTIVE); 23KDIGM Band NONREACTIVE (NONREACTIVE); 28KDIGG Band NONREACTIVE (NONREACTIVE); 30KDIGG Band NONREACTIVE (NONREACTIVE); 39KDIGG Band NONREACTIVE (NONREACTIVE); 39KDIGM Band NONREACTIVE (NONREACTIVE); 41KDIGG Band REACTIVE (NONREACTIVE); 41KDIGM Band NONREACTIVE (NONREACTIVE); 45KDIGG Band NONREACTIVE (NONREACTIVE); 58KDIGG Band NONREACTIVE (NONREACTIVE); 66KDIGG Band NONREACTIVE (NONREACTIVE); 93KDIGG Band NONREACTIVE (NONREACTIVE); Lyme Antibodies, WB IgG NEGATIVE (NEGATIVE); Lyme Antibodies, WB IgM NEGATIVE (NEGATIVE)
== END 2019-02-13 16:14 | disposition home or self-care (01) ==
LOC: ED 09:38 → 4W 09:38 → SUATTDRO 13:28 → 4W 17:45

== ENCOUNTER 2021-04-27 07:06 | Observation (INO) ==
[~2021-04-27 07:06] MED LIST changes: -AMLO-110 PO; -ASPEC81 PO; -B-COCAP2 PO; +BACITRACIN OINT 0.9 GM PKT ONE; -GLYB5TAB8 PO; -HMLI SC; -HYDR12.56 PO; +LIDOCAINE 1% LOCAL 20 ML VIAL ONE; -MCR25 PO; -MULT-506 PO; -REPA2TAB12 PO; +VANCOMYCIN HCL 1000MG/20ML VIAL ONE; -VITA400C15 PO; +WATER, STERILE FOR INJ 10 ML VIAL ONE
--- NOTE | 2021-04-27 08:17 | History & Physical Bridge Note ---
Date of Service April 27, 2021 History & Physical Bridge Note I have examined the patient, reviewed the History & Physical and in the interval since the performance of the History & Physical I have noted the following changes of clinical significance: no changes noted.
--- NOTE | 2021-04-27 08:18 | Pre Anesthesia Assessment ---
Date of Service April 27, 2021 Pre Sedation Assessment Vital Signs Temp Pulse Resp BP Pulse Ox 04/27/21 07:19 36.7 C 59 L 18 174/82 H 97 Cardiovascular RRR, no murmur, no edema Respiratory normal respiratory effort, lungs clear to auscultation Pre-Sedation Airway Assessment Smoking Status: Former smoker Hx Sleep Apnea: No Short, Thick Neck: No Thyromental Distance: > or= 3.5 Finger Breadths Oral Cavity: + Dentures Mallampati Class: III ASA: ASA3 NPO Status Date of Last Intake of Fluids: 04/26/21 Time of Last Intake of Fluids: 20:00 Date of Last Intake of Solid Food: 04/26/21 Time of Last Intake of Solid Foods: 20:00 Notes The planned sedation has been discussed with the patient. Informed Consent was obtained. I have identified the patient, determined the appropriateness of sedation and have assessed the patient immediately prior to the procedure. All medicine(s) and interventions are by my order.
[2021-04-27] MEDS ORDERED: fentaNYL citrate 100 MCG/2 ML VIAL ONE ×2 (08:27→08:58)
[2021-04-27] MEDS ORDERED: MIDAZOLAM HCL 5 MG/ML 1 ML VIAL ONE ×2 (08:27→08:58)
[2021-04-27] MEDS ORDERED: MIDAZOLAM HCL 1 MG/ML 2ML VIAL ONE (08:58)
--- NOTE | 2021-04-27 10:17 | Electrophysiology Report ---
Date of Service April 27, 2021 Electrophysiology Procedure Electrophysiology Procedure Report Preoperative diagnosis: Symptomatic second-degree AV block Postoperative diagnosis: Same Procedure: Dual-chamber pacemaker implantation Surgeon: Sabas Winn MD Estimated blood loss: 20 cc Complications: None Disposition: Equipment Inspector recovery Procedure details: After obtaining informed consent for the procedure, the patient was brought to the laboratory and prepped and draped in the standard sterile manner. The left prepectoral region was anesthetized with 1% lidocaine local anesthetic and left axillary venipuncture was performed by percutaneous technique and a guidewire placed through the left subclavian vein into the superior vena cava. The area was further infiltrated with 1% lidocaine local anesthetic and a 5 cm incision was made parallel to the left clavicle and 2 cm below it and carried down to the anterior pectoralis fascia. A pacemaker pocket was formed by blunt dissection anterior to the pectoralis fascia and a vancomycin-soaked sponge was placed in the pocket. An 8 [place] Medtronic lead introducer was placed over the guidewire into the left subclavian vein, the dilator and guidewire were removed and a bipolar active fixation steroid tipped atrial lead was advanced through the introducer into the superior vena cava. A guidewire was placed through the introducer and the introducer was stripped from the lead and guidewire. An 8 [place] Medtronic lead introducer was placed over the retained guidewire into the left subclavian vein, the dilator and guidewire were removed and a C315 sheath was advanced into the right ventricle over a guidewire. The guidewire and the dilator were removed and a bipolar active fixation Select Secure steroid tipped ventricular lead was advanced through the introducer into right ventricle. The ventricular lead was advanced through the sheath into a mid to distal septal location. The screw was extended fixing the lead in position. Partial penetration into the septum was confirmed with dye injection. Pacing and sens ing thresholds were evaluated in bipolar configuration and are recorded on the implant data sheet. Diaphragmatic pacing was evaluated full output as noted on the implant data sheet. The sheath system was stripped from the ventricular lead and the 7 [place] sheath was also stripped from the lead. Using a curved stylette the atrial lead was positioned in the region of the atrial appendage and the screw extended fixing the lead in position. Pacing and sensing thresholds were evaluated in bipolar configuration and are recorded on the implant data sheet. Diaphragmatic pacing was evaluated full output and is noted on the implant data sheet. Once the leads were in position they were attached to the anterior pectoralis fascia using 2 sutures of 2-0 silk around each lead collar. The vancomycin-s oaked sponge was removed from the pocket, hemostasis was obtained, the pacemaker was attached to the leads and placed in the pocket with the leads coiled beneath it. The incision was closed with a running double subcutaneous closure of 3-0 Vicryl absorbable suture, followed by running subcuticular skin closure of 4-0 Vicryl absorbable suture. Bacitracin ointment was placed on the incision and a dressing applied. [facility] [place] Electrophysiology codes Indication for Procedure (1) AVB (atrioventricular block): Pacing Procedure 1: Pacin Insert/Replace Pacer A & V PG Moderate Sedation Codes Moderate Sedation Codes Procedure 1: Sedation/Anesthesia: 97272 Mod Sedation by the same physician;Init15 Min Child Age 5 & Up Procedure 2: Sedation/Anesthesia: 53334 Mod Sedation by the same physician; Ea [id number] Minutes
[2021-04-27] MEDS ORDERED: ACETAMINOPHEN 325 MG TAB PO PRN (10:21)
[2021-04-27] MEDS ORDERED: PHARMACY GLYCEMIC MGMT CONSULT PRN (10:39)
[2021-04-27] MEDS ORDERED: ACETAMINOPHEN W/CODEINE #3 1 TAB PO PRN (10:49)
[2021-04-27] MEDS ORDERED: GLUCOSE 10 TABS/TUBE PO PRN (15:15)
[2021-04-27] MEDS ORDERED: DEXTROSE 50% 50 ML SYRINGE IV PRN (15:15)
[2021-04-27] MEDS ORDERED: CARBOHYDRATES FOR HYPOGLYCEMIA PO PRN (15:15)
[2021-04-27] MEDS ORDERED: GLUCOSE 40% GEL 15 GM TUBE PO PRN (15:15)
[2021-04-27] MEDS ORDERED: GLUCAGON FOR INJ 1 MG VIAL IM PRN (15:15)
--- NOTE | 2021-04-27 15:16 | Pharmacy Report ---
Pharmacy Glycemic Short Note 2 - Date of Service April 27, 2021 - Glycemic Short BSG Results (Last 24 hours): 04/27/21 10:16 POC Glucose 130 H OUTPATIENT ANTIDIABETIC REGIMEN: * Tresiba 14 units HS * Novolog with coverage of 1 unit per 5 grams of carbohydrates consumed with breakfast and lunch; 1 unit per 10 grams of carbohydrates consumed with dinner ASSESSMENT: * Mr Navas is a 76 y/o with a PMH of T2DM controlled with insulin who presents for placer placement. * Will initiate patient's home regimen of Lantus 14 units nightly (lower dose available for BSG < 120 mg/dL). * Will start Novolog weight-based stress of 3 since it appears that patient requires more aggressive carbohydrate coverage. PLAN FOR INPATIENT GLYCEMIC CONTROL: * Basal insulin * Lantus 14 units SQ HS (11 units if BSG < 120 mg/dL) * Bolus insulin * NovoLog per scale ACHS or Q6hrs while NPO * Goal Range: Low 110 mg/dL - High 140 mg/dL * Correction Factor: 20 mg/dL/unit * Nutritional / Prandial insulin per carb ratio of 1 unit per 6 grams CHO consumed PLAN FOR DISCHARGE: * Patient follows with [facility] [place] [place]. Continue to follow with them for blood sugar titration.
[2021-04-27] MEDS: INSULIN ASPART 100 UNITS/ML 3 ML PEN SC SCH ×2 (17:05→21:06)
--- NOTE | 2021-04-27 18:12 | Post Anesthesia Assessment ---
Date of Service April 27, 2021 Post Sedation Assessment Vital Signs Temp Pulse Resp BP Pulse Ox 04/27/21 15:53 36.5 C 61 18 146/89 H 97 04/27/21 15:26 36.5 C 64 18 165/83 H 97 04/27/21 14:00 62 20 134/85 98 04/27/21 13:00 60 20 147/80 H 98 04/27/21 12:30 61 20 136/80 98 04/27/21 11:30 60 20 160/87 H 98 04/27/21 11:15 61 20 148/80 H 98 04/27/21 11:00 60 18 172/89 H 98 04/27/21 10:45 60 18 169/73 H 98 04/27/21 10:30 60 18 167/86 H 98 04/27/21 10:15 60 18 168/84 H 98 04/27/21 07:19 36.7 C 59 L 18 174/82 H 97 Recovery Score Activity: Moves 4 extremities Respiration: Deep Breath/Cough Circulation: +/-20% PreAnes Value Consciousness: Fully Awake Oxygen Saturation: > 92% On Room Air Post Anesthesia Score: 10 Discharge Sedation Level of Care: Fast Track Phase II Post Sedation Plan On clinical assessment, the patient appears to have tolerated the sedation without complications. Patient is recovering as anticipated. Patient will continue to be monitored by nursing and may be discharged when sedation discharge criteria are met per below protocol. Upon Completions of procedure up to 15 minutes continue every 5 minute vital signs and the P.A.R. score; then discharge to a Phase I or Fast Track to Phase II per the following guidelines: * Discharge Patient to appropriate Phase II area if PAR is 8 or greater or return to pre- procedure baseline. The post - procedure orders will be as directed. * If PAR score is less than 8 or not return to pre-procedure baseline then patient will follow Phase I monitoring till PAR is reached for Phase II. The Phase I may be done in procedure room or may call to secure a Phase I area. * If naloxone or flumazenil are used for reversal, hold in Phase I for continued monitoring from when last reversal dose was given for a minimum of 60 minutes or longer pending the nurse and/or physician discretion of patient condition before discharge to Phase II. Please call the Sedation Physician to re-evaluate and complete post-note for discharge to Phase II area. Do NOT discharge from procedure sedation or Phase 1 until post- sedation evaluation note is complete by procedure /sedation MD Sedation Discharge Instructions to be given to the patient at discharge to home.
[2021-04-27] MEDS: LOSARTAN POTASSIUM 50 MG TAB PO SCH (20:02)
[2021-04-27] MEDS ORDERED: ASPIRIN 81 MG ECTAB PO SCH (21:00)
[2021-04-27] MEDS ORDERED: ATORVASTATIN 20 MG TAB PO SCH (21:00)
[2021-04-27] MEDS ORDERED: INSULIN GLARGINE SOLOSTAR 100 UNITS/ML 3 ML PEN SC SCH (21:00)
[2021-04-28 08:09] LABS: BUN Creatinine Ratio 22.2 (10-20); Calcium 9.3 mg/dl (8.5-10.1); Creatinine Clr Calc Pharmacy 25.7 ml/min; Est GFR (African American) 29.3 ml/min; Est GFR (Non-African American) 25.3 ml/min; Potassium 3.7 mmol/L (3.5-5.1)
[2021-04-28] MEDS: INSULIN ASPART 100 UNITS/ML 3 ML PEN SC SCH (08:12)
[2021-04-28] MEDS: LOSARTAN POTASSIUM 50 MG TAB PO SCH (08:12)
[2021-04-28] MEDS ORDERED: CHLORTHALIDONE 25 MG TAB PO SCH (09:00)
[2021-04-28] MEDS ORDERED: SENNA 8.6 MG TAB PO SCH (09:00)
[2021-04-28] MEDS ORDERED: CHOLECALCIFEROL 1,000 UNITS 25 MCG TAB PO SCH (09:00)
[2021-04-28] MEDS ORDERED: MULTIVITAMIN TAB PO SCH (09:00)
--- NOTE | 2021-04-28 09:31 | XRay Report ---
TWO VIEW CHEST CLINICAL HISTORY: Status post pacemaker implantation.. FINDINGS: PA and lateral chest radiographs are compared to study dated 02/12/2019 and [facility]. A 2-lead cardiac pacemaker is new from previous. This partially obscures the left upper chest. Leads project over the right atrial appendage and right ventricle. The heart is mi ldly enlarged noting atherosclerotic calcification of the thoracic aorta. The pulmonary vasculature i s noncongested. Chronic residual thickening is similar to previous. No airspace consolidation or pleu ral effusion is identified. There is no pneumothorax. The skeletal structures are osteopenic. There a re healed right-sided rib fractures. Degenerative change is seen throughout the thoracic spine. IMPRESSION: 1. A 2-lead cardiac pacemaker has been implanted as above. No pneumothorax is identified post procedu re. 2. Cardiomegaly without radiographic evidence of congestive failure. 3. No airspace consolidation or pleural effusion is identified. ACT 112: Negative or not required by law. Electronically signed by: Oscar Couch M.D. 04/28/2021 9:30 AM
--- NOTE | 2021-04-28 10:39 | Cardiology Progress Note ---
Date of Service April 28, 2021 Assessment & Plan (1) Status post placement of cardiac pacemaker: Plan: He is doing very well post pacemaker implantation, the site looks good, the x- ray looks good and he feels well. The device is working well. He is stable for discharge. Admission and Anticipated Discharge Date Admission Date: April 27, 2021 Subjective He feels well today, no significant incisional discomfort Physical Exam Physical Exam: The incision is clean and dry, no erythema or swelling. Minimal bleeding. Lungs are clear Cardiac rhythm is regular with no rub Results & Data ([facility]) Vital Signs (Past 12 Hours) Vital Signs Temp Pulse Pulse Resp BP Pulse Ox 04/28/21 07:46 36.4 C L 60 20 141/59 H 95 04/28/21 03:21 37.1 C 60 17 112/66 95 04/27/21 23:46 37.0 C 69 16 124/75 95 04/27/21 23:00 66 Laboratory Results Comprehensive Metabolic Panel 04/28/21 Range/Units 06:59 Sodium 138 (136-145) mmol/L Potassium 3.7 (3.5-5.1) mmol/L Chloride 106 (98-107) mmol/L Carbon Dioxide 24 (21-32) mmol/L BUN 53 H (7-18) mg/dl Creatinine 2.37 H (0.6-1.4) mg/dl Glucose 103 H (70-99) mg/dl Calcium 9.3 (8.5-10.1) mg/dl Intake and Output 04/27/21 04/28/21 04/28/21 22:59 06:59 14:59 Intake Total 550 / 650 100 / 650 Balance 550 / 650 100 / 650 Intake: Oral 550 / 650 100 / 650 Other: # Unmeasured Voids 4 4 Weight 84.9 kg 83.8 kg Weight Measurement Method Standing Scale Diagnostic Findings Postop ECG: Atrial pacing with intact AV conduction Telemetry: Normal dual-chamber pacemaker function Chest x-ray: Good lead position, no pneumothorax Pacemaker evaluation: Excellent pacing and sensing characteristics PG Care Time/CCT Total # of Minutes Spent Total Time Spent with Patient: Total time spent is greater than 50% in coordination of care (as documented) at patient's floor/unit and/or counseling patient: Coding Level of Care Code 44016 Post Operative Follow-Up Diagnoses Status post placement of cardiac pacemaker Z95.0 CPT Codes Dual Lead Pacemaker System - 88244 ([id number])
--- NOTE | 2021-04-28 15:47 | Electrocardiogram Report ---
Test Reason : Blood Pressure : / mmHG Vent. Rate : 065 BPM Atrial Rate : 065 BPM P-R Int : 334 ms QRS Dur : 150 ms QT Int : 456 ms P-R-T Axes : 070 -79 035 degrees QTc Int : 474 ms Sinus rhythm with 1st degree A-V block Left axis deviation Right bundle branch block Inferior infarct , age undetermined Abnormal ECG When compared with ECG of 12-FEB-2019 10:08, Inferior infarct is now Present Confirmed by Kavon Gr ([id number]) on 04/28/2021 3:47:14 PM Referred By: Sabas Winn Confirmed By:Kavon Gr
--- NOTE | 2021-05-12 08:09 | Discharge Summary ---
Date of Service May 12, 2021 Admission HPI Per Admitting Provider This is a 76-year-old gentleman who recently injured his left knee and is scheduled to have surgery for a torn meniscus. He has no prior cardiac history although he does have a history of diabetes mellitus, hypertension and dyslipidemia. He also has kidney disease and follows with nephrology. He has noticed over the last year that he gets little more short of breath than before, this occurs when he walks up hills, walks rapidly on the level or climbs stairs. That has been somewhat progressive. He does not have much in the way of dizziness although he does note occasional dizzy spells when he stands up quick ly but not at other times. He does not have exertional chest discomfort and has never had presyncope or syncope. He was evaluated for a preop clearance and was noted to have AV block. He does not take any medications to cause AV block, such as beta-blockers or calcium blockers. He requires a pacemaker and is admitted for that. Admission Exam (Per Admitting) Constitutional Constitutional: Alert, cooperative and in no distress. HEENT: Unremarkable Neck: No jugular venous distention, carotid pulses are normal and equal bilaterally without bruits. Pulmonary: Clear to auscultation bilaterally. Cardiac: Regular somewhat slow rhythm with no murmur, gallop or rub. Abdomen: Soft, nontender with normal bowel sounds. Extremities: No edema. Distal pulses intact. Neurologic: No focal findings. Gait is steady with a limp due to left knee discomfort and he uses a cane. Skin: No rash, ecchymoses or petechiae. Discharge Data Procedures Performed Operation Date: 04/27/21 08:00 Actual Procedures p Pacer with A/V Leads (Dual) - Sabas Winn MD Hospital Course (1) Status post placement of cardiac pacemaker: He did well post pacemaker implantation, the site looks good, the x-ray looks good and he feels well. The device is working well. He is stable for discharge. Coding Level of Care Code None Diagnoses Status post placement of cardiac pacemaker Z95.0
== END 2021-04-28 12:08 | disposition home or self-care (01) ==
LOC: 2S 07:06 → EP 07:06
DX: E11.22 Type 2 diabetes mellitus with diabetic chronic kidney disease; I12.9 Hypertensive chronic kidney disease with stage 1 through stage 4 chronic kidney disease, or unspecified chronic kidney disease; Z20.822 Contact with and (suspected) exposure to COVID-19; Z87.891 Personal history of nicotine dependence; Z79.4 Long term (current) use of insulin; E78.5 Hyperlipidemia, unspecified; Z79.82 Long term (current) use of aspirin; N18.30 Chronic kidney disease, stage 3 unspecified; I44.1 Atrioventricular block, second degree; Z79.899 Other long term (current) drug therapy